=== PATIENT | female | born 1935 | race Caucasian/White ===

== ENCOUNTER 2017-01-28 09:36 | Emergency (ER) | payer MEDICARE, OTHER ==
[~2017-01-28] VITALS: Ht 170.2 cm; Wt 72.6 kg
[~2017-01-28 09:36] MED LIST: AMBIEN10 MG PO; AMIODARONE HCL200 MG PO; CIPRO500 MG PO; CITRACAL + D C1 EACH PO; CLOBETASOL PROP15 G1 TOP; DIGOXIN125 MCG PO; LISINOPRIL5 MG PO; MELOXICAM7.5 MG PO; METOPROLOL SUCC50 MG PO; NITROSTAT0.4 MG SL; NORCO 5-325 TA1 EACH PO; OMEPRAZOLE20 MG PO; PREVACID15 MG PO; PROBIOTIC1 EAC1 PO; SIMVASTATIN20 MG PO; VITAMIN B COMP1 EACH PO; XARELTO20 MG PO
[2017-01-28] MEDS ORDERED: CYCLOBENZAPRINE10 MG PO (11:00)
== END 2017-01-28 11:07 | disposition home or self-care (01) ==
LOC: ED 09:36
DX: M79.1 Myalgia (principal); E78.00 Pure hypercholesterolemia, unspecified; I48.91 Unspecified atrial fibrillation; Z79.899 Other long term (current) drug therapy
CPT/HCPCS: 72170; 96372; 99283; J1885

== ENCOUNTER 2020-06-24 01:20 | Emergency (ER) | payer MEDICARE, OTHER ==
[~2020-06-24] VITALS: Ht 170.2 cm; Wt 72.6 kg
[~2020-06-24 01:20] MED LIST changes: +CYCLOBENZAPRINE10 MG PO
[2020-06-24] MEDS ORDERED: CEFPODOXIME PR200 MG PO (05:18)
--- NOTE | 2020-06-24 23:52 | EKG ---
[facility] [address] [facility] [place] [address] Signed Sinus rhythm with 1st degree AV block Otherwise normal ECG No previous ECGs available Confirmed by JOSEPHINE GÓMEZ MD ([id number] on 06/24/2020 11:52:23 PM Electronically Signed By: JOSEPHINE GÓMEZ MD 06/24/20 2352 PATIENT NAME: SUN COSTA Electrocardiogram DATE OF : 33 PHYSICIAN: JOSEPHINE GÓMEZ MD REPORT #: [id number] REPORT IS CONFIDENTIAL AND NOT TO BE RELEASED WITHOUT AUTHORIZATION
== END 2020-06-24 05:52 | disposition home or self-care (01) ==
LOC: ED 01:20
DX: N39.0 Urinary tract infection, site not specified (principal); R07.9 Chest pain, unspecified; E78.00 Pure hypercholesterolemia, unspecified; I48.91 Unspecified atrial fibrillation; Z87.891 Personal history of nicotine dependence; Z79.899 Other long term (current) drug therapy
CPT/HCPCS: 71045; 80053; 81001; 83690; 83735; 84484; 85025; 93005; 93010; 99285-25; J7040